=== PATIENT | male | born 1985 | race Caucasian/White ===

== ENCOUNTER 2020-04-10 05:52 | Day surgery (SDC) | payer OTHER, MEDICAID, SELFPAY ==
[2020-04-10] VITALS (10 sets, daily range): BP systolic 123–153; BP diastolic 70–96; PULSE 46–70; RESP 14–25; TEMP 36.2–37.1; O2SAT 93–100; BMI 27.1
[2020-04-10] MEDS: sodium chloride 0.9% 1,000 ML 30 ML IV (06:25)
--- NOTE | 2020-04-10 06:42 | ANES.PREANE2 ---
Pre-Anesthetic Assessment Pre-Anesthetic Assessment: Height/Weight: Height 1.83 m Weight 90.718 kg Temp Pulse Resp BP Pulse Ox 97.8 F 67 18 123/90 99 04/10/20 06:01 04/10/20 06:01 04/10/20 06:01 04/10/20 06:01 04/10/20 06:01 Preop Diagnosis: Chronic cholecystitis Proposed Procedure: Operation Date: 04/10/20 07:00 Proposed Procedures p EGD [id number] K80.20(Not Applicable) - Rocky Miles MD s Laparoscopic Cholecystectomy(Not Applicable) - Rocky Miles MD Familial anesthetic complications: no hx Was Beta Jose Alberto taken within 24 hours: N/A Last intake: Intake Last Liquid Date 04/09/20 Last Liquid Time 19:00 Last Solid Date 04/09/20 Last Solid Time 19:00 Social: Social History: Alcohol (a couple of beers a day) and Tobacco Packs per day: 0.5 ppd Exam: Pre-Anes Outpt Exam: alert, oriented x 3, clear to auscultation bilaterally and regular rate & rhythm Airway: Cervical ROM: WNL MP: 1 Dentition: Chipped Pulmonary: Pulmonary: None reported CV/HEM: CV/HEM: None reported : : None reported Hepatic: Hepatic: None reported GI: Comments: gallbladder + abdominal pain Metabolic: Metabolic: None reported Musc/skel: Musc/skel: None reported Neuropsych: Neuropsych: None reported Anesthetic Plan: ASA status: 1 Anesthesia: General Risk of > 500 ml blood loss (7ml/kg in children): No Meds/Allergies Current Medications: Current Medications Generic Name Dose Route Start Last Admin Trade Name Freq PRN Reason Stop Dose Admin Sodium Chloride 1,000 mls @ 30 ml s/hr 04/10/20 05:45 04/10/20 06:25 Sodium Chloride 0.9% IV 04/11/20 05:44 30 mls/hr .Q24H LILIANE Administration PFSH Anesthesia PFSH: Medical History Cholelithiasis Family History Denies family history of Anesthesia complication Bleeding disorder Social History Smoking and tobacco status: current every day smoker Second hand smoke exposure: No Alcohol intake: current Alcohol intake frequency: holidays/special occasions only Alcohol type: beer Adopted: No Caregiver/support person: Yes Lives independently: Yes Household members: spouse and family Housing: House Marital status: service: No Current occupational status: employed Current occupational exposures/hazards: No Pets and animals: No History of recent travel: Yes Sexually active: Yes Current gender identity: Male Yris/Oriental Orthodox: Rastafarian Special yris needs: No Agree to transfusion: No Data Anesthesia Cardiac Studies: No Data to Display
--- NOTE | 2020-04-10 06:48 | W.PM.OPSUD ---
Surgery/Procedure H&P Update DATE OF PROCEDURE: April 10, 2020 DATE H&P PERFORMED: 04/05/20 H&P UPDATE INFORMATION: I have reviewed H&P completed within last 30 days, I have examined patient prior to procedure and No changes to prior documentation PREOP DIAGNOSIS: Chronic cholecystitis PLANNED PROCEDURE: Operation Date: 04/10/20 07:00 Proposed Procedures p EGD [id number] K80.20(Not Applicable) - Rocky Miles MD s Laparoscopic Cholecystectomy(Not Applicable) - Rocky Miles MD
--- NOTE | 2020-04-10 08:10 | SUR.PHASEI ---
0807 PATIENT TO PACU AT THIS TIME FROM OR. RR EVEN AND UNLABORED. PATIENT RESPONSIVE TO VERBAL STIMULI. 4 INCISIONS TO ABDOMEN, CDI.
[2020-04-10] MEDS: fentaNYL 50 mcg/mL INJ 2mL IVP (08:17)
--- NOTE | 2020-04-10 08:34 | SUR.PHASEI ---
0830 PATIENT TO OPS AT THIS TIME FROM PACU. RR EVEN AND UNLABORED. NO DISTRESS. TOLERATING ICE CHIPS, DENIES NAUSEA. 4 INCISIONS CDI, TO ABDOMEN.
--- NOTE | 2020-04-10 08:35 | SUR.PHASEI ---
0830 ANESTHESIA AWARE OF LAST PAIN MEDICATION ADMINISTERED. THIS NURSE REMAINED WITH PATIENT UNTIL 0832.
[2020-04-10] MEDS: HYDROcodone-acetaminophen 5-325 mg Tablet 1 TAB PO (08:41)
--- NOTE | 2020-04-10 09:10 | PM.OP ---
Operative Report Date of procedure: April 10, 2020 Pre-op Diagnosis: Chronic cholecystitis Post-op Diagnosis: Mild nonerosive gastritis on EGD Chronic cholecystitis Procedure Done: Esophagogastroduodenoscopy Laparoscopic cholecystectomy Specimens removed/disposition: Gallbladder Surgeon: Rocky Miles Anesthesia: General Estimated blood loss (mL): 5 Condition: stable Disposition: PACU Procedure: The patient was taken to the operating room and was intubated under general anesthesia. A bite-block was placed and a gastroscope was introduced and advanced up to the second portion of the duodenum and slowly withdrawn. The first and second portion of duodenum was normal. There was mild nonerosive gastritis noted in the antrum but the pylorus, fundus and body of the stomach was normal. The Z line was at 40 cm. The rest of the esophagus was normal. After the antibiotic had been administered, the abdomen was prepped and draped in a sterile manner. Using a #15 blade, a 1 centimeter infraumbilical curvilinear incision was made and using an open Marie technique the peritoneal cavity was entered. A 10 millimeter port was placed and 15 millimeters of pneumoperitoneum was created. A 10 millimeter, 30 degrees scope was then introduced. Three 5 millimeter ports were placed in the epigastric, midclavicular and the anterior axillary line two fingerbreadths below the costal margin on the right side under the direct visualization. Ratcheted forceps were introduced into the lateral most port and was used to retract the fundus of the gallbladder cephalad and using forceps the infundibulum of the gallbladder was retracted laterally. Using L-hook cautery the peritoneum overlying the Calot's triangle was opened medially and laterally until the cystic duct and the cystic artery were skeletonized. Dissection was carried along the body of the gallbladder and after ensuring critical view of safety, 4 clips applied on the cystic duct and 3 clips applied on the cystic artery and cut leaving, 3 clips on the remaining portion of the duct and 2 clips on the remaining portion of the artery. The rest of the gallbladder was dissected off the liver using L-hook cautery. There was no bleeding or bile leaking noted from the gallbladder fossa and the clips appeared to be in place. An EndoCatch bag was introduced to remove the gallbladder. All the ports were removed under direct visualization and there was no bleeding noted from the port sites. The fascia of the umbilicus was closed using [id number] 0 Vicryl sutures and the subcutaneous tissue was approximated using 3-0 Vicryl sutures. The skin at all four ports were closed using 4-0 Monocryl and surgical glue. A total of 10 millimeters of 0.5% Marcaine was infiltrated around the port sites. The patient was stable throughout the procedure.
== END 2020-04-10 09:12 | disposition home or self-care (01) ==
PROVIDERS: Visit Provider Surgery
PROC: 0DJ08ZZ Inspection of Upper Intestinal Tract, Via Natural or Artificial Opening Endoscopic (ICD-10-PCS; CPT 43235; principal; 2020-04-10 07:00)
PROC: 0FT44ZZ Resection of Gallbladder, Percutaneous Endoscopic Approach (ICD-10-PCS; CPT 47562; 2020-04-10 07:00)
DX: K81.1 Chronic cholecystitis (principal); K29.50 Unspecified chronic gastritis without bleeding; F17.210 Nicotine dependence, cigarettes, uncomplicated
CPT/HCPCS: 43235; 47562; 12345; 88304; J0690; J1100; J1885; J2001; J2405; J2704; J2710; J3010; J3490; J7030